=== PATIENT | female | born 1940 ===

== ENCOUNTER 2023-05-05 10:43 | Outpatient (AMB) | payer MEDICARE, SELFPAY ==
--- NOTE | 2023-05-05 11:03 | AM.OFFWIN_ITS ---
Intake Vital Signs 05/05/23 11:18 Weight 167 lb BP 130/60 Blood Pressure Location Lt brachial Position Sitting Pulse 95 Pulse Source Pulse Oximeter Temp 97.6 F Temp Source Temporal Artery Scan Pulse Oximetry (%) 96 Oxygen Delivery Method Room Air Intake Visit Reasons: EST/morning dizziness going on fr weeks (lobby) Intake Note: pt is here today for dizziness started 1 week ago Allergies No Known Allergies Allergy (Verified 05/05/23 11:04) Do you need a note to return to daycare/school/sports/work: No HPI HPI Comments History of Present Illness Details Patient is an 82yo F who presents to office with dizziness Son translates She is here with son for evaluation Lives with son He gives hx for pt but she is able to answer questions He said she always dizziness; gives meclizine for symptoms She was using medicine once in a while but has been taking meclizine daily after breakfast x 3 weeks Sh wakes up extremely dizzy x 3 weeks She saw MD 2 weeks ago and they recommended she continue that medicine and go to PT for dizziness + increased weakness per son Son called PCP about it and recommended she be seen at urgent care Last meclizine was 9 am She said it feels like spinning + fatigue No CP or SOB Eat/drink normally Son said the dizziness lasts 3-4 hours. Usually fine by end of day He denies dizziness at night and said last night she was at her baseline He said every morning is like this. No hx of diabetes/checking sugars Son said blood pressures has been checked and is normal Son denies one sided weakness or confusion No cough, fever or chills O2 between 94-96% on room air She has chronic medications that she takes at home She has been on sertraline for years and takes it only at night no recent change in dosage Review of Systems Const Denies body aches, Denies chills, Reports daytime sleepiness (in am), Reports fatigue, Denies fever(s), Denies frequent falls, Reports lethargy and Reports malaise Eyes Denies blurry vision and Denies loss of vision ENT Reports dizziness, Denies otalgia, Denies nasal congestion and Denies sore throat Card Denies chest pain, Denies syncope, Denies leg edema and Denies dyspnea Resp Denies change in phlegm color, Denies chest congestion, Denies cough, Denies dyspnea and Denies wheezing GI Denies abdominal pain, Denies diarrhea, Denies vomiting and Reports other (regular eat/drink) Musc Reports muscle weakness Neuro Denies Abnormal speech present, Reports dizziness, Denies syncope, Denies frequent falls, Denies focal weakness, Denies loss of vision and Reports other (son said she held onto him to ambulate inside office) Endo Reports fatigue Aller/Immun Denies wheezing Physical Exam Vital Signs: Last Vital Signs Temp 97.6 F 05/05/23 11:18 Pulse 95 05/05/23 11:18 BP 130/60 05/05/23 11:18 Pulse Ox 96 05/05/23 11:18 Oxygen Delivery Method Room Air 05/05/23 11:18 General: NAD. Sitting quietly in office with eyes closed upright on chair Skin: Warm dry throughout Eye: PERRL HENT: Airway patent. Uvula midline. No pharyngeal erythema or edema. No WELL FLOW OPERATOR. Bilateral canals clear. TM non-erythematous, non-bulging. No TM perforation or hemotympanum noted. Respiratory: CTA bilaterally. No wheezes, rales or rhonchi Cardiac: RRR. No murmur. No oitting edema or claf tenderness Neurology: A/O x 3. CN 2-12 grossly intact. diffuse weakness with supply assistant strength. Unable to keep arms extended straight during pronator drift. No facial droop. Able to answer questions when promted Psych: Good mood and affect Neuro Speech: No Abnormal speech present Results AMB Random Glucose (hemocue) AMB Random Glucose (hemocue) 142 mg/dL Last Edit by Romi Tamayo CMA on 05/05/23 11:39 Results Reviewed Results Reviewed: Laboratory Last Values Random Glu (Clinic) 142 mg/dL 05/05/23 11:37 Assessment & Plan Assessment & Plan (1) Dizziness: Code(s): R42 - Dizziness and giddiness Plan: Patient seen and evaluated. POC glucose: 142 but this is not fasting and breakfast was consumed. Discussed with son that at the office I can not rule in or out if these symptoms are secondary to medication or not but most likely since no change recently, it is unlikely. Discussed need for further work up and son agree. He will bring her to ER and refused ambulance Expect called to [place] [facility] All questions answered Orders: Orders AMB Random Glucose (hemocue) Today Z13.9 - Encounter for screening, unspecified AMB Glucose monitoring Today R42 - Dizziness and giddiness Coding Level of Care Code Est Pt Level 4 (49691) Diagnoses Dizziness R42
[2023-05-05 11:18] VITALS: BP 130/60; PULSE 95; TEMP 36.4; O2SAT 96
== END 2023-05-05 11:51 | disposition home or self-care (01) ==
PROVIDERS: Visit Provider Physician Assistant
DX: R42 Dizziness and giddiness (principal)
CPT/HCPCS: 82948; 99214